=== PATIENT | male | born 1980 | race Caucasian/White ===

== ENCOUNTER 2018-12-28 10:47 | Emergency (ER) | payer SELFPAY, OTHER ==
[2018-12-28] MEDS: IBUPROFEN 600 MG TAB PO (13:22)
[2018-12-28] MEDS: DIPHTH/TET/ACEL PERTUSS (ADULT) 0.5 ML VIAL IM* (13:23)
== END 2018-12-28 13:55 | disposition home or self-care (01) ==
LOC: FTE 10:47
DX: S81.051A Open bite, right knee, initial encounter (principal); W54.0XXA Bitten by dog, initial encounter; Y92.9 Unspecified place or not applicable; Z23 Encounter for immunization
CPT/HCPCS: 90471; 90715; 99283-25